=== PATIENT | female | born 1965 | race Caucasian/White ===

== ENCOUNTER 2019-12-29 00:35 | Emergency (ER) | payer BC ==
[2019-12-29 00:49] VITALS: BMI 23.1
[2019-12-29] MEDS ORDERED: ACETAMINOPHEN 325 MG TABLET (FP) PO ONE (00:52)
--- NOTE | 2019-12-29 00:58 | PDOC ---
History of Present Illness - General Chief Complaint: Pain, Acute Stated Complaint: FEVER, SORE THROAT, NECK PAIN Time Seen by Provider: 12/29/19 00:51 History Source: Patient Exam Limitations: No Limitations - History of Present Illness Initial Comments: 12/29/19 00:53 HPI 54 YOF with h/o asthma and HLD presenting with fever, Tmax 102 today. a/w shakes and body aches and chills. +right sided sore throat and neck pain/muscle aches with pain upon swallowing. took Advil 2 tab about 1 hour [employer] with some improvement in her pain. currently rates her sore throat as 3/10, only worse with swallowing. normal phonation. tolerating oral and fluid intake, normal appetite and ate her usual amount today. +nonproductive cough x 1 week, which she attributed to her asthma and weather changes. Denies fever, chills, chest pain, SOB, palpitation, dizziness, nasal congestion , weakness, N, V, D, abdominal pain, bladder and bowel problems, focal weakness/ paresthesias, leg swelling/pain, rash. No sick contacts or travel. No new changes in medications. No suspicious food intake Allergies: None Past Medical History/PSH: as above Social history: Lives with family. No tobacco, ETOH or drug use. Meds: as documented in EMR Family history: noncontributory Review of systems Constitutional: + fevers or chills. +sweats. No weakness, no appetite change HEENT: +sore throat. +odynophagia. no headache or dizziness. No congestion. No visual/hearing disturbances. CVS: no cp or syncope. Resp: no sob. +cough. Gastrointestinal: no abdominal pain, nausea, vomiting, diarrhea. Genitourinary: no urinary sx, hematuria. MUSCULOSKELETAL: No joint pain and swelling. No neck or back pain. SKIN: no redness or skin changes, no discharge, no rash. No wounds. Hematologic: no easy bruising/bleeding. NEUROLOGIC: No headache, dizziness, LOC or altered mental status. No weakness, numbness or tingling. Psych: no anxiety or depression Allergic/Immunologic: no allergies All other systems reviewed and negative, or as documented in HPI. Physical Exam: General: Well appearing, awake and alert, NAD. HEENT: NCAT, PERRL, EOMI, clear conjunctiva, anicteric, moist mucus membranes, clear oropharynx, no oral lesions.. b/l TM clear, no erythema or bulging. Neck: neck supple, FROM; right anterior cervical TTP, soft palp and mobile submandibular gland/node. no meningeal signs. +right lateral trapezius and cervical palp TTP. Resp: CTAB, normal and even respirations, no respiratory distress CVS: +tachycardia, 2+ peripheral pulses throughout, no peripheral edema Abdomen: soft, NTND, no rebound or guarding. Back: nontender, normal inspection and ROM MSK: no edema, JEFFERY x4, ROM intact. No clubbing or cyanosis. normal bulk and tone. Extremities: no calf tenderness Neuro: alert, oriented appropriately; no focal neurologic deficits Psych: Calm and cooperative Skin: warm and well perfused, cap refill <2 sec, normal color, no rash or skin discoloration. 12/29/19 00:57 12/29/19 02:32 Past History - Past Medical History Allergies/Adverse Reactions: Allergies Allergy/AdvReac Type Severity Reaction Status Date / Time No Known Allergies Allergy Verified 12/29/19 00:42 Home Medications: Ambulatory Orders Linaclotide [Linzess] 72 mcg PO DAILY 12/29/19 Asthma: Yes (MILD, NO MEDS) COPD: No - Psycho Social/Smoking Cessation Hx Smoking Status: No Smoking History: Never smoked Have you smoked in the past 12 months: No Number of Cigarettes Smoked Daily: 0 Information on smoking cessation initiated: No Hx Alcohol Use: Yes (WEEKENDS) Drug/Substance Use Hx: No *Physical Exam - Vital Signs Last Vital Signs Temp Pulse Resp BP Pulse Ox 99.8 F H 120 H 16 157/103 H 99 12/29/19 00:44 12/29/19 00:44 12/29/19 00:44 12/29/19 00:44 12/29/19 00:44 ED Treatment Course - LABORATORY CBC & Chemistry Diagram: 12/29/19 01:00 12/29/19 01:00 - RADIOLOGY Radiology Studies Ordered: Category Date Time Status CHEST PA & LAT [RAD] Stat Radiology 12/29/19 00:52 Ordered Chest X-Ray Result: No Infiltrates Radiograph Interpretation: 12/29/19 02:39 Interpreted by ED Physician: CXR (2 view): no acute abnormality: no infiltrates , bones appear intact and structures normal alignment, cardiac silhouette within normal limits. no free air under diaphragm, no pneumothorax. Medical Decision Making - Medical Decision Making 12/29/19 00:57 Vital Signs Temp Pulse Resp BP Pulse Ox 99.8 F H 120 H 16 157/103 H 99 12/29/19 00:44 12/29/19 00:44 12/29/19 00:44 12/29/19 00:44 12/29/19 00:44 vitals with LGF, tachy likely related to febrile illness htn noted. also with fever sats normal 99%, no respiratory distress DDX bacteremia, influenza, pharyngitis, viral syndrome, strep throat, dehydration, electrolyte/metabolic derangements, viral syndrome, URI, pneumonia basic labs, cultures, cxr, flu and throat /strep swab flu indicated as pt with fever, and acute sx, h/o asthma and risk of complications. 12/29/19 02:33 labs and lytes wnl, flu neg, strep neg, reassuring f/u throat culture blood cultures to followup repeat VS improved, afebrile, no tachy, normotensive breathing comfortably pt likely with viral URI/pharyngitis, supportive care, hydration, antipyretics prn for fever control Pt to be discharged in stable condition. Patient and family made aware of clinical impression, treatment recommendations and disposition plan, return precautions discussed (including but not limited to new or persistent/worsening symptoms, pain, fevers, or signs of infection, chest pain, respiratory distress , inability to tolerate oral intake, dehydration, syncope, or neurologic changes ). Follow up with PMD as recommended, follow up information provided, take medications as instructed for duration of time. continue with supportive care, avoid triggers and precipitants. All questions answered to patient's satisfaction and expressed understanding and comfort with this. At the time of discharge, the patient is alert, clinically improved, tolerating po and verbalizes understanding of instructions, satisfied with the care received and felt comfortable with the plan. Patient does not suffer from an acute life- threatening medical condition at this time and is safe for outpatient follow- up. 12/29/19 02:39 Discharge - Discharge Information Problems reviewed: Yes Clinical Impression/Diagnosis: Fever Qualifiers: Fever type: due to other condition Qualified Code(s): R50.81 - Fever presenting with conditions classified elsewhere Condition: Stable Disposition: HOME - Admission No - Follow up/Referral Referrals: [facility] [place] [facility] [Provider Group] [address] [Provider Group] Mary Jo Anand MD [Staff Physician] - - Patient Discharge Instructions Patient Printed Discharge Instructions: DI for Fever (Symptom) -- Adult Additional Instructions: 1) Please follow-up with your primary care doctor in the next 1-2 days. Please call tomorrow for for any urgent issues. 2) You were given a copy of the tests performed today. Please bring the results with you and review them with your primary care doctor. Your laboratory / imaging results were normal, including your chest x-ray which was negative for pneumonia. Flu and strep test is negative, follow-up on throat cultures. Also follow-up on blood cultures 3) If you have any worsening of symptoms or any other concerns please return to the ED immediately. Return if worsening symptoms including fevers, headache, vomiting, visual or hearing disturbances, abdominal pain, chest pain, shortness of breath, syncope, dehydration, inability to take things by mouth/vomiting, altered mental status, or worsening concerning symptoms. 4) Please continue taking your home medications as directed. You may continue to take ibuprofen/Aleve/Advil and or Tylenol as needed for fever control. Stay well hydrated and rest adequately. Make an appointment. If you cannot follow-up with your primary care doctor please return to the ED - Post Discharge Activity
[2019-12-29] MEDS ORDERED: ACETAMINOPHEN 325 MG TABLET (FP) ONE (01:10)
[2019-12-29 01:47] LABS: BASO % 0.1 % (0-2.0); EOS % 0.6 % (0-4.5); HEMATOCRIT 30.5 % (32.4-45.2); LYMPH % 10.4 % (8-40); MCH 26.2 pg (25.7-33.7); MEAN CELL VOLUME 79.6 fl (80-96); MONO % 8.7 % (3.8-10.2); NEUT % 80.2 % (42.8-82.8); PLATELET COUNT 267 K/MM3 (134-434); RBC 3.83 M/mm3 (3.60-5.2); RDW 13.4 % (11.6-15.6)
[2019-12-29 02:11] LABS: ALBUMIN 3.4 g/dl (3.4-5.0); BILIRUBIN,TOTAL 0.2 mg/dL (0.2-1); BLOOD UREA NITROGEN 16.2 mg/dL (7-18); CREATININE 0.6 mg/dL (0.55-1.3); POTASSIUM 3.8 mmol/L (3.5-5.1); TOT PROT 7.8 g/dl (6.4-8.2)
[2019-12-29 02:25] VITALS: BP 112/72; PULSE 99; TEMP 98.3
== END 2019-12-29 02:32 | disposition home or self-care (01) ==
LOC: FER 00:35
DX: R50.81 Fever presenting with conditions classified elsewhere (principal); J45.901 Unspecified asthma with (acute) exacerbation; E78.5 Hyperlipidemia, unspecified
CPT/HCPCS: 36415; 71046-TC-FY; 80053; 85025; 87040; 87070; 87804; 87880; 99284-25

== ENCOUNTER 2022-04-22 11:28 | Emergency (ER) | payer BC ==
[2022-04-22] MEDS ORDERED: BEBTELOVIMAB (EUA) 175 MG/2 ML VIAL IVPUSH ONE (11:52)
[2022-04-22 12:07] VITALS: TEMP 98.1; BMI 23.8
[2022-04-22 12:31] LABS: BASO % 0.3 % (0-2.0); EOS % 0.8 % (0-4.5); HEMATOCRIT 37.2 % (32.4-45.2); HEMOGLOBIN 12.2 GM/dL (10.7-15.3); LYMPH % 11.7 % (8-40); MCH 26.3 pg (25.7-33.7); MCHC 32.8 g/dl (32.0-36.0); MEAN CELL VOLUME 80.2 fl (80-96); MEAN PLT VOLUME 8.2 fl (7.5-11.1); MONO % 11.2 % (3.8-10.2); PLATELET COUNT 160 10^3/uL (134-434); RBC 4.64 M/mm3 (3.60-5.2); WHITE BLOOD COUNT 2.9 K/mm3 (4.0-10.0)
[2022-04-22 13:00] LABS: ALBUMIN 4.1 g/dl (3.4-5.0); CALCIUM 9.3 mg/dL (8.5-10.1)
[2022-04-22 13:03] LABS: CREATININE 0.7 mg/dL (0.55-1.3)
[2022-04-22 13:06] LABS: BILIRUBIN,TOTAL 0.2 mg/dL (0.2-1); TOT PROT 8.4 g/dl (6.4-8.2)
[2022-04-22 13:13] VITALS: BP 148/86; PULSE 78
== END 2022-04-22 13:28 | disposition home or self-care (01) ==
LOC: JER 11:28
DX: U07.1 COVID-19 (principal); R09.81 Nasal congestion
CPT/HCPCS: 36415; 80053; 82728; 85025; 85379; 86140; 93005; 93010; 99284-25; Q0222

== ENCOUNTER 2022-07-19 15:35 | Day surgery (SDC) | payer BC | END 2022-07-19 16:33 | disposition home or self-care (01) | LOC: FINFUSION 15:35 → FM/S 15:38 → FINFUSION 16:33 | PROVIDERS: ATTEND Family Medicine | PROC: 3E033GC Introduction of Other Therapeutic Substance into Peripheral Vein, Percutaneous Approach (ICD-10-PCS; principal; 2022-07-19) | DX: Z53.8 Procedure and treatment not carried out for other reasons (principal); D50.9 Iron deficiency anemia, unspecified | CPT/HCPCS: 96365 ==

== ENCOUNTER 2022-07-20 15:15 | Day surgery (SDC) | payer BC ==
[~2022-07-20 15:15] MED LIST: IRON SUCROSE INJECTION 200 MG in SODIUM CHLORIDE 100 ML IVPB ONE
[2022-07-20] MEDS ORDERED: IRON SUCROSE INJECTION 200 MG in SODIUM CHLORIDE 100 ML IVPB ONE (16:30)
[2022-07-20 16:37] VITALS: BP 112/78; PULSE 70; RESP 16; TEMP 98.4
== END 2022-07-20 16:38 | disposition home or self-care (01) ==
LOC: FINFUSION 15:15 → FM/S 15:17 → FINFUSION 16:38
PROVIDERS: ATTEND Family Medicine
PROC: 3E033GC Introduction of Other Therapeutic Substance into Peripheral Vein, Percutaneous Approach (ICD-10-PCS; principal; 2022-07-20)
DX: D50.9 Iron deficiency anemia, unspecified (principal)
CPT/HCPCS: 96365; J1756